=== PATIENT | female | born 1990 | race Caucasian/White ===

== ENCOUNTER 2017-01-07 11:37 | Emergency (ER) | payer OTHER ==
[2017-01-07 11:54] VITALS: BP 115/69
--- NOTE | 2017-01-07 13:53 | UC ---
Skin Complaint HPI - HPI Summary HPI Summary: SORE THROAT, SWOLLEN GLANDS AND COLD SYMPTOMS ON 12/24/16. COLD SYMPTOMS RESOLVED. 12/30/16 DEVELOPED AN ITCHY DIFFUSE RASH ON BODY. 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 Negative: Fever, Chills , Cough, Wheezing, Chest Pain, Hoarseness, Throat Tightening, Syncope, Drainage , Bruising, Tenderness, Red Streaks Related History: Possible Reaction to: Food, Possible Reaction to: Animal, Possible Reaction to: Insect, Possible Reaction to: Environmental Exposure - Allergy/Home Medications Allergies/Adverse Reactions: Allergies Allergy/AdvReac Type Severity Reaction Status Date / Time Nitrofurantoin Allergy Hives/Diff. Verified 01/07/17 11:55 [From Macrobid] Breathing/I tching Home Medications: Home Medications Levothyroxine TAB* [Synthroid 25 MCG TAB*] 25 01/07/17 [History] Montelukast Sodium TAB* [Singulair 10 MG TAB*] 10 01/07/17 [History] Norethindrone Acetate-Ethinyl [Tri-Legest Fe 1-20/1-30/1-35 mg-Mcg] 1 01/07/17 [ History] Review of Systems Constitutional: Negative Skin: Rash Eyes: Negative ENT: Negative Respiratory: Negative Cardiovascular: Negative Gastrointestinal: Negative Genitourinary: Negative Motor: Negative Neurovascular: Negative Musculoskeletal: Negative Neurological: Negative Psychological: Negative All Other Systems Reviewed And Are Negative: Yes PMH/Surg Hx/FS Hx/Imm Hx Previously Healthy: Yes Respiratory History Of: Reports: Asthma - exercise induced - Surgical History Surgical History: None - Family History Known Family History: Negative: Cardiac Disease - Social History Occupation: Employed Full-time Alcohol Use: None Substance Use Type: None Smoking Status (MU): Never Smoked Tobacco Physical Exam Triage Information Reviewed: Yes Appearance: Well-Appearing, No Pain Distress, Well-Nourished Vital Signs: Initial Vital Signs Temp 99.8 F 01/07/17 11:45 Pulse 90 01/07/17 11:45 Resp 16 01/07/17 11:45 BP 115/69 01/07/17 11:45 Pulse Ox 100 01/07/17 11:45 Vital Signs Reviewed: Yes Eye Exam: Normal ENT Exam: Normal ENT: Positive: Normal ENT inspection, Hearing grossly normal, Pharynx normal, TMs normal Dental Exam: Normal Neck exam: Normal Neck: Positive: Supple, Nontender Respiratory Exam: Normal Respiratory: Positive: Chest non-tender, Lungs clear, Normal breath sounds, No respiratory distress, No accessory muscle use Cardiovascular Exam: Normal Cardiovascular: Positive: RRR, No Murmur, Pulses Normal, Brisk Capillary Refill Abdominal Exam: Normal Musculoskeletal Exam: Normal Musculoskeletal: Positive: Strength Intact, ROM Intact Neurological Exam: Normal Psychological Exam: Normal Psychological: Positive: Normal Response To Family Skin: Positive: rashes - diffuse erythemaE that kimberly with pressure, small ( 1mm) papular elevations Course/Dx - Differential Diagnoses - Skin Complaint Differential Diagnoses: Allergic Reaction, Anaphylaxis, Contact Dermatitis, Drug Rash, Medication; Adverse Reaction, Sc[place], Systemic Illness, Urticaria , Viral Exanthem - Diagnoses Provider Diagnoses: VIRAL EXANTHEM Discharge - Discharge Plan Condition: Stable Disposition: HOME Prescriptions: diPHENhydraMINE PO* [Benadryl PO*] 50 mg PO BID #10 cap predniSONE TAB* [Deltasone TAB*] 10 mg PO DAILY #26 tab Patient Education Materials: Acute Rash (ED), Viral Exanthem (ED) Referrals: Rebecca Yao MD [Primary Care Provider] -
== END 2017-01-07 13:24 | disposition home or self-care (01) ==
LOC: UCEAST 11:37
DX: B09 Unspecified viral infection characterized by skin and mucous membrane lesions (principal); Z88.1 Allergy status to other antibiotic agents; J45.990 Exercise induced bronchospasm
CPT/HCPCS: 87651; 99212; G0463

== ENCOUNTER 2017-03-11 12:04 | Emergency (ER) | payer OTHER ==
[2017-03-11 13:44] VITALS: BP 136/77
--- NOTE | 2017-03-11 15:00 | UC ---
Complaint Female HPI - HPI Summary HPI Summary: burning on urination x 3 days. Hx prior UTI's. No vaginal symptoms. - History Of Current Complaint Chief Complaint: UCGU Stated Complaint: UTI TYPE SYMPTOMS Time Seen by Provider: 03/11/17 15:00 Hx Obtained From: Patient Hx Last Menstrual Period: [id number] ?: No Onset/Duration: Gradual Onset, Lasting Days, Still Present Timing: Constant Severity Initially: Moderate Severity Currently: Moderate Pain Intensity: 5 Pain Scale Used: 0-10 Numeric Radiates to: no Character: Burning Aggravating Factor(s): Urination Alleviating Factor(s): Nothing Associated Signs And Symptoms: Negative: Fever, Back Pain, Vaginal Bleeding/ Discharge, Vaginal Discharge, Nausea, Vomiting(# Of Episodes =) - Allergies/Home Medications Allergies/Adverse Reactions: Allergies Allergy/AdvReac Type Severity Reaction Status Date / Time Nitrofurantoin Allergy Hives/Diff. Verified 01/07/17 11:55 [From Macrobid] Breathing/I tching Home Medications: Home Medications Cetirizine* [ZyrTEC 10 MG TAB*] 10 mg PO DAILY 03/11/17 [History Confirmed 03/11] Cranberry (Vaccinium Macrocarp [Cranberry] 500 mg PO 03/11/17 [History] PMH/Surg Hx/FS Hx/Imm Hx Previously Healthy: Yes Respiratory History Of: Reports: Asthma - exercise induced - Surgical History Surgical History: None - Family History Known Family History: Negative: Cardiac Disease - Social History Alcohol Use: None Substance Use Type: None Smoking Status (MU): Never Smoked Tobacco Review of Systems Constitutional: Negative Skin: Negative Eyes: Negative ENT: Negative Respiratory: Negative Cardiovascular: Negative Gastrointestinal: Negative Genitourinary: Dysuria, Urgency, Other - urinating small amounts Motor: Negative Neurovascular: Negative Musculoskeletal: Negative Neurological: Negative Psychological: Negative All Other Systems Reviewed And Are Negative: Yes Physical Exam Triage Information Reviewed: Yes Appearance: Well-Appearing, No Pain Distress, Well-Nourished Vital Signs: Initial Vital Signs Temp 98.8 F 03/11/17 13:40 Pulse 89 03/11/17 13:40 Resp 18 03/11/17 13:40 BP 136/77 03/11/17 13:40 Pulse Ox 98 03/11/17 13:40 Vital Signs Reviewed: Yes Eyes: Positive: Conjunctiva Clear ENT: Positive: Normal ENT inspection, Hearing grossly normal. Negative: Muffled /hoarse voice Neck: Positive: Supple Respiratory: Positive: No respiratory distress Cardiovascular: Positive: RRR, Pulses Normal, Brisk Capillary Refill Abdomen Description: Positive: Nontender, No Organomegaly, Soft. Negative: CVA Tenderness (R), CVA Tenderness (L), Distended, Guarding, Hepatomegaly, McBurney' s Point Tenderness, Peritoneal Signs, Splenomegaly Bowel Sounds: Positive: Present Musculoskeletal: Positive: Strength Intact, ROM Intact Neurological: Positive: Alert, Muscle Tone Normal Psychological Exam: Normal Skin Exam: Normal Complaint Female Dx - Course Course Of Treatment: UA is neg for signs of infection, will send culture. Will treat for possible ureaplasma or mycoplasma hominis and encourage definite follow up - Differential Dx/Diagnosis Differential Diagnosis/HQI/PQRI: Ovarian Cyst, Pelvic Inflammatory Disease, Sexually Transmitted Disease, Urinary Tract Infection Provider Diagnoses: dysuria Discharge - Discharge Plan Condition: Stable Disposition: HOME Prescriptions: DOXYcycline CAP(*) [DOXYcycline 100MG CAP(*)] 100 mg PO BID #14 cap Patient Education Materials: Urinary Tract Infection in Women (ED) Referrals: Rebecca Yao MD [Primary Care Provider] - Additional Instructions: As we discussed this may be an infection due to mycoplasma hominis, or ureaplasma. We have sent off the urine culture and the testing for these organisms and we have started empiric therapy. We may call you to change your therapy based on these results. Return to urgent care if you have any new or worsening symptoms.
--- NOTE | 2017-03-13 09:58 | UC ---
Progress - Progress Note Progress Note: urine culture, no growth. jurgen euceda md.
[2017-03-15 14:50] LABS: Ureaplasma Source URINE; Ureaplasma parvum PCR Positive; Ureaplasma urealyticum PCR Negative
[2017-03-15 14:53] LABS: Mycoplasma hominis Result Negative; Mycoplasma hominis Source URINE
== END 2017-03-11 15:25 | disposition home or self-care (01) ==
LOC: UCEAST 12:04
DX: R30.0 Dysuria (principal); Z87.440 Personal history of urinary (tract) infections; Z88.1 Allergy status to other antibiotic agents; J45.990 Exercise induced bronchospasm
CPT/HCPCS: 81003; 87086; 87491; 87591; 87798; 99212; G0463

== ENCOUNTER 2018-03-28 08:28 | Emergency (ER) | payer OTHER ==
[2018-03-28 08:40] VITALS: BP 122/80
--- NOTE | 2018-03-28 16:27 | UC ---
Avelino Light Angela, scribed for Jose Cochran MD on 03/28/18 at 0846 . Eye Complaint HPI - HPI Summary HPI Summary: This pt is a 27 y/o female presenting to [facility] c/o bilateral eye redness since this morning. Pt states she woke up this morning with her eyelids closed and some dry yellow secretions. She denies eye trauma. Pt denies eye itchiness. Denies URI symptoms, including sore throat, cough, runny nose, sinus pressure. She reports no allergy symptoms. Denies any PMHx. - History of Current Complaint Chief Complaint: UCEye Stated Complaint: EYE COMPLAINT Time Seen by Provider: 03/28/18 08:44 Hx Obtained From: Patient Hx Last Menstrual Period: 03/07/18 Onset/Duration: Lasting Hours, Still Present Timing: Constant Severity Currently: None Pain Intensity: 0 Pain Scale Used: 0-10 Numeric Location of Injury: Other - no injury Aggravating Factor(s): Nothing Alleviating Factor(s): Nothing Associated Signs And Symptoms: Positive: Drainage (Clear) - yellow secretions. Negative: Vision Impairment Bilateral, Vision Impairment Right, Vision Impairment Left, Fever - Allergies/Home Medications Allergies/Adverse Reactions: Allergies Allergy/AdvReac Type Severity Reaction Status Date / Time nitrofurantoin Allergy anaph Verified 03/28/18 08:41 [From Macrobid] PMH/Surg Hx/FS Hx/Imm Hx Other Endocrine History: DENIES: diabetes Other Cardiovascular History: DENIES: HTN Respiratory History: Asthma - exercise induced - Surgical History Surgical History: None - Family History Known Family History: Negative: Cardiac Disease - Social History Alcohol Use: None Substance Use Type: None Smoking Status (MU): Never Smoked Tobacco Review of Systems Constitutional: Negative Skin: Negative Eyes: Drainage - yellow, Eye Redness - in bilateral eyes ENT: Negative Respiratory: Negative Cardiovascular: Negative Gastrointestinal: Negative Genitourinary: Negative Motor: Negative Neurovascular: Negative Musculoskeletal: Negative Neurological: Negative Psychological: Negative All Other Systems Reviewed And Are Negative: Yes Physical Exam - Summary Physical Exam Summary: VITAL SIGNS: Reviewed. GENERAL: Patient is a well-developed and nourished female who is lying comfortable in the stretcher. Patient is not in any acute respiratory distress. HEAD AND FACE: Normocephalic EYES: PERRLA, EOMI x 2. Conjunctival injection and dry crust in bilateral eyes. EARS: Hearing grossly intact. MOUTH: Oropharynx within normal limits. NECK: Supple, trachea is midline, no adenopathy, no JVD, no carotid bruit. CHEST: Symmetric, no tenderness at palpation LUNGS: Clear to auscultation bilaterally. No wheezing or crackles. CVS: Regular rate and rhythm, S1 and S2 present, no murmurs or gallops appreciated. ABDOMEN: Soft, non-tender. Bowel sounds are normal. No abdominal abnormal pulsations. EXTREMITIES: Full ROM in all major joints, no edema, no cyanosis or clubbing. NEURO: Alert and oriented x 3. No acute neurological deficits. Speech is normal and follows commands. SKIN: Dry and warm Triage Information Reviewed: Yes Vital Signs: Initial Vital Signs Temp 96 F 03/28/18 08:38 Pulse 79 03/28/18 08:38 Resp 16 03/28/18 08:38 BP 122/80 03/28/18 08:38 Pulse Ox 100 03/28/18 08:38 Vital Signs Reviewed: Yes Eye Complaint Course/Dx - Course Course Of Treatment: This pt is a 27 y/o female presenting to [facility] c/o bilateral eye redness since this morning. Pt states she woke up this morning with her eyelids closed and some dry yellow secretions. She denies eye trauma. Pt denies eye itchiness. Denies URI symptoms, including sore throat, cough, runny nose, sinus pressure. She reports no allergy symptoms. Denies any PMHx. The pt has bilateral conjunctivitis, for which she will be given a prescription for Ciprofloxacin ophthalmic. She will be discharged home with follow up from her PCP. Pt was instructed to return to the urgent care or go to ER immediately if any of the symptoms return or worsens. Plan of care was discussed with the patient and pt understands and agrees. All questions were answered to patient satisfaction. There were no further complaints or concerns. Pt is hemodynamically stable, alert and oriented x3. - Differential Dx/Diagnosis Provider Diagnoses: Bilateral conjunctivitis Discharge - Sign-Out/Discharge Documenting (check all that apply): Discharge/Admit/Transfer - Discharge - Discharge Plan Condition: Stable Disposition: HOME Prescriptions: Ciprofloxacin 0.3% OPTH.RENE* [Cipro 0.3% Opth*] 2 drop BOTH EYES Q4H #1 btl Patient Education Materials: Conjunctivitis (ED) Referrals: Rebecca Yao MD [Primary Care Provider] - Additional Instructions: RETURN TO URGENT CARE OR THE ED FOR ANY WORSENING OR NEW SYMPTOMS. The documentation as recorded by the Avelino singletary Angela accurately reflects the service I personally performed and the decisions made by Dimas perez Walter, MD.
== END 2018-03-28 09:03 | disposition home or self-care (01) ==
LOC: UCEAST 08:28
DX: H10.33 Unspecified acute conjunctivitis, bilateral (principal); J45.990 Exercise induced bronchospasm; Z88.1 Allergy status to other antibiotic agents
CPT/HCPCS: 99212; G0463

== ENCOUNTER 2018-04-10 13:41 | Emergency (ER) | payer OTHER ==
[2018-04-10 14:22] VITALS: BP 129/67
--- NOTE | 2018-04-10 14:39 | UC ---
Eye Complaint HPI - HPI Summary HPI Summary: She presents today with continued bilateral eye symptoms. Was seen here on 03/28 and started on ciprofloxacin eye drops. Symptoms responded to it but partially and she stopped using it yesterday with return of symptoms which she reports greenish discharge with stickiness in eye, not painful . There is increased lacrimation, and redness. Some blurry vision yesterday but feels better today . She also reports seasonal allergies to trees/ grass- mainly nov to january and she sees [facility]. She is on a daily medication but does not remember name . Has used zyrtec in past which she has at home but has not been using it . She had similar symptoms with runny nose and increased lacrimation but never to the point of greenish discharge. Denies any trauma or a possible foreign body . She denies any sick contact , or any other symptom - History of Current Complaint Chief Complaint: UCEye Stated Complaint: EYE IRRITATION Time Seen by Provider: 04/10/18 14:35 Hx Obtained From: Patient Hx Last Menstrual Period: 2 WEEKS AGO Onset/Duration: Sudden Onset, Lasting Weeks Timing: Constant Severity Initially: Moderate Severity Currently: Mild Pain Intensity: 1 Pain Scale Used: 0-10 Numeric Location of Injury: Conjunctiva Aggravating Factor(s): Nothing Alleviating Factor(s): Eye Drops Associated Signs And Symptoms: Positive: Drainage (Purulent), Vision Impairment Bilateral. Negative: Photophobia, Fever, Swelling Related History: Similar Episode - in past but worst this time., Trauma - Risk Factors Penetrating Injury Risk Factor: Negative Globe Rupture Risk Factors: Negative Acute Glaucoma Risk Factors: Negative Optic Artery Occlusion Risk Factors: Negative - Allergies/Home Medications Allergies/Adverse Reactions: Allergies Allergy/AdvReac Type Severity Reaction Status Date / Time nitrofurantoin Allergy anaph Verified 04/10/18 14:15 [From Macrobid] Home Medications: Home Medications Ciprofloxacin 0.3% OPTH.RENE* [Cipro 0.3% Opth*] 2 drop BOTH EYES Q4H 04/10/18 [ History Confirmed 04/10/18] PMH/Surg Hx/FS Hx/Imm Hx Previously Healthy: Yes Endocrine History: Hypothyroidism Other Cardiovascular History: negative Respiratory History: Asthma - exercise induced Other GI/ History: negative Other Neurological History: negative Other Psychological History: negative Other Cancer History: negative - Surgical History Surgical History: None - Family History Known Family History: Negative: Cardiac Disease - Social History Alcohol Use: None Substance Use Type: None Smoking Status (MU): Never Smoked Tobacco Review of Systems Constitutional: Negative Skin: Negative Eyes: Blurred Vision, Drainage - purulent, Eye Redness ENT: Negative Respiratory: Negative Cardiovascular: Negative Gastrointestinal: Negative Genitourinary: Negative Motor: Negative Neurovascular: Negative Musculoskeletal: Negative Neurological: Negative Psychological: Negative Is Patient Immunocompromised?: No All Other Systems Reviewed And Are Negative: Yes Physical Exam Triage Information Reviewed: Yes Appearance: Well-Appearing, No Pain Distress, Well-Nourished Vital Signs: Initial Vital Signs Temp 99.1 F 04/10/18 14:18 Pulse 77 04/10/18 14:18 Resp 16 04/10/18 14:18 BP 129/67 04/10/18 14:18 Pulse Ox 98 04/10/18 14:18 Vital Signs Reviewed: Yes Eyes: Positive: Conjunctiva Inflamed - Erythema noted, Discharge - mild clear discharge, no purulent discharge noted. ENT: Positive: Hearing grossly normal, Pharynx normal, TMs normal. Negative: Nasal congestion, Nasal drainage, Muffled voice, Hoarse voice Neck: Positive: Supple, No Lymphadenopathy Respiratory Exam: Other Respiratory: Positive: Lungs clear, Normal breath sounds. Negative: Crackles, Rhonchi, Stridor Cardiovascular Exam: Normal Cardiovascular: Positive: RRR, No Murmur Neurological: Positive: Alert Psychological Exam: Normal Skin Exam: Normal Skin: Negative: rashes Eye Complaint Course/Dx - Course Course Of Treatment: She has a diagnosis of bacterial conjunctivitis and was seen for follow up due to continued symptoms despite the ciprofloxacin eye drops x 2 weeks. She has significant hisory of seasonal allegies and had runny eyes in past but this time it was worst . We discussed that there might be a component of allergic conjunctivitis causing her continued symptpms. We discussed that she will start different antibiotic, start taking zyrtec and follow up in 1 week with ophthalmology if still having symptoms. We also discussed that she can try ophtalmic antiallergic medication like patanol but she deferred to use oral zyrtec. She expressed understanding . . - Differential Dx/Diagnosis Differential Diagnosis/HQI/PQRI: Conjunctivitis, Foreign Body, Keratitis Provider Diagnoses: Conjucntovitis , possible bacterial but allergic conjunctivitis cannot be ruled out . Discharge - Sign-Out/Discharge Documenting (check all that apply): Discharge/Admit/Transfer - Discharge Plan Condition: Stable Disposition: HOME Prescriptions: Polymyx/Trimethoprim OPTH* [Polytrim OPHTH*] 1 drop BOTH EYES Q3H 7 Days #1 btl Patient Education Materials: Conjunctivitis (ED) Referrals: Rebecca Yao MD [Primary Care Provider] - Trent Elizabeth MD [Medical Doctor] - 1 Week Additional Instructions: You have persistent symptoms despite using the ciprofloxacin eye drops. Possible recurring infection or there is allergic conjunctivitis as you have history of allergies. Start using a different antibiotic - prescribed today. Start using zyrtec daily Follow up with ophthalmology in 1 week, return sooner if no better or symptoms get worse. - Billing Disposition and Condition Condition: STABLE Disposition: HOME
== END 2018-04-10 15:10 | disposition home or self-care (01) ==
LOC: UCEAST 13:41
DX: H10.33 Unspecified acute conjunctivitis, bilateral (principal); E03.9 Hypothyroidism, unspecified; J45.990 Exercise induced bronchospasm; Z88.1 Allergy status to other antibiotic agents
CPT/HCPCS: 99212; G0463

== ENCOUNTER 2020-03-09 16:37 | Emergency (ER) | payer OTHER ==
--- OUTSIDE RECORDS SUMMARY | 2020-03-09 16:43 | XMS REPORT | Continuity of Care Document ---
:1990 External Reference #:[id number] Author Name Allergy Injection (transmitted by agent of provider Jaz Siddiqui) Address [address] [place] [address] Care Team Providers Name Role Phone Rebecca Yao M.D. - Family Care Team Information Mold Filler Medicine Problems Active Problems Provider Date Body mass index 25-29 - overweight Alfonso Cordova M.D. Onset: 01/13/2016 Immunization Alfonso Cordova M.D. Onset: 01/13/2016 Mild persistent asthma Alfonso Cordova M.D. Onset: 01/13/2016 Allergic rhinitis due to pollen Alfonso Cordova M.D. Onset: 02/24/2016 Body mass index 25-29 - overweight Alfonso Cordova M.D. Onset: 02/24/2016 Mild intermittent asthma Alfonso Cordova M.D. Onset: 08/30/2017 Urticaria Alfonso Cordova M.D. Onset: 03/05/2017 Allergic rhinitis Ovidio Flores M.D. Onset: 01/07/2017 Idiopathic urticaria Ovidio Flores M.D. Onset: 01/07/2017 Symptom of skin and integumentary tissue Ovidio Flores M.D. Onset: Body mass index 25-29 - overweight Ovidio Flores M.D. Onset: 01/07/2017 Social History Type Date Description Comments Sex Unknown Tobacco Use Start: Unknown Never Smoked Cigarettes Tobacco Use Start: Unknown Never Smoked Cigars Tobacco Use Start: Unknown Never Smoked A Pipe Tobacco Use Start: Unknown Never Used Smokeless Tobacco ETOH Use Never used alcohol Tobacco Use Start: Unknown Patient has never smoked Recreational Drug Use Never Used Drugs Allergies, Adverse Reactions, Alerts Active Allergies Reaction Severity Comments Date Macrobid Throat swelling, difficulty Severe 01/03/2016 breathing/talking. Medications Active Medications SIG Qnty Indications Ordering Date Provider Gayle Allergy 1 every day 30tabs Debora Root, 01/18/2017 10mg M.D. Tablets Synthroid one tablet daily Unknown 50mcg Tablets Tri-Linyah one tablet once Unknown daily 0.18/0.215/0.25 mg-35 mcg Tablets Cran-Max one tablet daily Unknown 500mg Capsules Proair HFA two inhalations 8.500gm Alfonso Cordova, every 4 hours as M.D. 108(90Base) mcg/Act needed for cough, Aerosol wheezing or chest tightness Doxycycline Hyclate take 1 capsule by Unknown mouth once daily 50mg Capsules With A Full Glass Of Water DO ... (Refer To Prescription Notes). Medications Administered in Office Medication SIG Qnty Indications Ordering Provider Date Injection Allergy Injection 01/22/2020 Injection Injection Allergy Injection 01/08/2020 Injection Injection Allergy Injection 12/25/2019 Injection Injection Allergy Injection 10/30/2019 Injection Injection Allergy Injection 09/25/2019 Injection Injection Allergy Injection 09/11/2019 Injection Injection Allergy Injection 08/21/2019 Injection Injection Allergy Injection 08/07/2019 Injection Injection Allergy Injection 07/24/2019 Injection Injection Allergy Injection 07/03/2019 Injection Injection Allergy Injection 06/19/2019 Injection Injection Allergy Injection 06/05/2019 Injection Injection Allergy Injection 05/22/2019 Injection Injection Allergy Injection 05/08/2019 Injection Injection Allergy Injection 04/24/2019 Injection Injection Allergy Injection 03/27/2019 Injection Injection Allergy Injection 03/06/2019 Injection Injection Allergy Injection 02/20/2019 Injection Injection Allergy Injection 02/06/2019 Injection Injection Allergy Injection 01/23/2019 Injection Injection Allergy Injection 01/09/2019 Injection Injection Allergy Injection 12/26/2018 Injection Injection Allergy Injection 12/19/2018 Injection Injection Allergy Injection 11/28/2018 Injection Injection Allergy Injection 11/21/2018 Injection Injection Allergy Injection 11/11/2018 Injection Injection Allergy Injection 09/26/2018 Injection Injection Allergy Injection 09/12/2018 Injection Injection Allergy Injection 08/29/2018 Injection Injection Allergy Injection 08/15/2018 Injection Injection Alfonso Cordova M.D. 08/01/2018 Injection Injection Allergy Injection 08/01/2018 Injection Injection Alfonso Cordova M.D. 07/04/2018 Injection Injection Allergy Injection 07/04/2018 Injection Injection Allergy Injection 06/06/2018 Injection Injection Allergy Injection 05/23/2018 Injection Injection Allergy Injection 05/09/2018 Injection Injection Allergy Injection 04/25/2018 Injection Injection Alfonso Cordova M.D. 04/04/2018 Injection Injection Allergy Injection 04/04/2018 Injection Injection Alfonso Cordova M.D. 03/21/2018 Injection Injection Allergy Injection 03/21/2018 Injection Injection Alfonso Cordova M.D. 03/07/2018 Injection Injection Allergy Injection 03/07/2018 Injection Injection Allergy Injection 02/21/2018 Injection Injection Allergy Injection 02/03/2018 Injection Injection Allergy Injection 01/17/2018 Injection Injection Alfonso Cordova M.D. 01/03/2018 Injection Injection Allergy Injection 01/03/2018 Injection Injection Allergy Injection 12/20/2017 Injection Injection Allergy Injection 12/06/2017 Injection Injection Allergy Injection 11/24/2017 Injection Injection Allergy Injection 11/11/2017 Injection Injection Allergy Injection 10/25/2017 Injection Injection Allergy Injection 10/11/2017 Injection Injection Alfonso Cordova M.D. 09/27/2017 Injection Injection Allergy Injection 09/27/2017 Injection Injection Allergy Injection 09/13/2017 Injection Injection Allergy Injection 08/30/2017 Injection Injection Allergy Injection 08/16/2017 Injection Injection Allergy Injection 07/26/2017 Injection Injection Allergy Injection 07/05/2017 Injection Injection Allergy Injection 06/21/2017 Injection Injection Allergy Injection 06/07/2017 Injection Injection Allergy Injection 05/24/2017 Injection Injection Alfonso Cordova M.D. 05/03/2017 Injection Injection Allergy Injection 05/03/2017 Injection Injection Allergy Injection 04/19/2017 Injection Injection Allergy Injection 04/05/2017 Injection Injection Allergy Injection 03/22/2017 Injection Injection Alfonso Cordova M.D. 03/15/2017 Injection Injection Allergy Injection 03/15/2017 Injection Injection Allergy Injection 03/08/2017 Injection Injection Allergy Injection 03/03/2017 Injection Injection Allergy Injection 02/22/2017 Injection Injection Allergy Injection 02/15/2017 Injection Injection Allergy Injection 02/08/2017 Injection Injection Allergy Injection 02/01/2017 Injection Celestone/Cortisone Ovidio Flores M.D. 01/07/2017 [id number] 1 cc Injection Injection Allergy Injection 12/24/2016 Injection Injection Allergy Injection 12/11/2016 Injection Injection Allergy Injection 12/03/2016 Injection Injection Allergy Injection 11/19/2016 Injection Injection Allergy Injection 11/04/2016 Injection Injection Allergy Injection 10/26/2016 Injection Injection Allergy Injection 10/19/2016 Injection Injection Allergy Injection 10/12/2016 Injection Injection Allergy Injection 10/05/2016 Injection Injection Allergy Injection 09/28/2016 Injection Injection Allergy Injection 09/23/2016 Injection Injection Allergy Injection 09/16/2016 Injection Injection Allergy Injection 09/07/2016 Injection Injection Allergy Injection 08/31/2016 Injection Injection Allergy Injection 08/24/2016 Injection Injection Allergy Injection 08/17/2016 Injection Injection Allergy Injection 08/10/2016 Injection Injection Allergy Injection 08/03/2016 Injection Injection Allergy Injection 07/29/2016 Injection Injection Allergy Injection 07/23/2016 Injection Injection Allergy Injection 07/13/2016 Injection Injection Allergy Injection 07/06/2016 Injection Injection Allergy Injection 06/29/2016 Injection Injection Allergy Injection 06/22/2016 Injection Injection Allergy Injection 06/17/2016 Injection Injection Allergy Injection 06/08/2016 Injection Injection Allergy Injection 06/03/2016 Injection Injection Allergy Injection 05/25/2016 Injection Injection Allergy Injection 05/20/2016 Injection Injection Allergy Injection 05/11/2016 Injection Injection Allergy Injection 05/04/2016 Injection Injection Allergy Injection 04/27/2016 Injection Injection Allergy Injection 04/20/2016 Injection Injection Allergy Injection 04/15/2016 Injection Injection Allergy Injection 04/06/2016 Injection Injection Allergy Injection 03/30/2016 Injection Injection Allergy Injection 03/23/2016 Injection Injection Allergy Injection 03/16/2016 Injection Injection Allergy Injection 03/09/2016 Injection Injection Allergy Injection 03/02/2016 Injection Injection Allergy Injection 02/24/2016 Injection Injection Allergy Injection 02/17/2016 Injection Injection Allergy Injection 02/10/2016 Injection Injection Allergy Injection 02/03/2016 Injection Injection Allergy Injection 01/27/2016 Injection Immunizations CPT Code Status Date Vaccine Lot # [id number] Given Unknown Influenza Vaccine 3 Years Old + Vital Signs Date Vital Result Comment 08/14/2019 4:38pm Height 65 inches 5'5" Weight 176.00 lb Weight 79.834 kg Respiratory Rate 16 /min Heart Rate 86 /min O2 % BldC Oximetry 96 % BP Systolic 110 mmHg BP Diastolic 70 mmHg Asthma Control Test 25 Fractional Exhaled Nitric Oxide 10 BMI (Body Mass Index) 29.3 kg/m2 02/06/2019 4:42pm Height 65 inches 5'5" Weight 172.00 lb Weight 78.019 kg Respiratory Rate 18 /min Heart Rate 85 /min O2 % BldC Oximetry 98 % BP Systolic 113 mmHg BP Diastolic 70 mmHg Asthma Control Test 23 BMI (Body Mass Index) 28.6 kg/m2 Results Description No Information Available Procedures Date Code Description Status 01/22/2020 13271 Injection Completed 01/08/2020 67095 Injection Completed 12/25/2019 66562 Injection Completed 10/30/2019 65618 Injection Completed 09/25/2019 61951 Injection Completed 09/11/2019 04138 Injection Completed 08/21/2019 83635 Injection Completed 08/14/2019 99352 Nitric Oxide Gas Determination Completed 08/14/2019 64578 Pre PFT Completed 08/07/2019 58041 Injection Completed Medical Devices Description No Information Available Encounters Type Date Location Provider Dx Diagnosis Office Visit 08/14/2019 4:40p Liya Cordova M.D. J30.1 Allergic rhinitis due to pollen J45.20 Mild intermittent asthma, uncomplicated Assessments Date Code Description Provider 01/22/2020 J30.1 Allergic rhinitis due to pollen Alfonso Cordova M.D. 01/22/2020 J30.1 Allergic rhinitis due to pollen Allergy Injection 01/22/2020 J30.2 Other seasonal allergic rhinitis Alfonso Cordova M.D. 01/22/2020 J30.2 Other seasonal allergic rhinitis Allergy Injection 01/22/2020 J30.81 Allergic rhinitis due to animal (cat) (dog) hair Alfonso Cordova M.D. and dander 01/22/2020 J30.81 Allergic rhinitis due to animal (cat) (dog) hair Allergy Injection and dander 01/22/2020 J30.89 Other allergic rhinitis Alfonso Cordova M.D. 01/22/2020 J30.89 Other allergic rhinitis Allergy Injection 01/08/2020 J30.1 Allergic rhinitis due to pollen Alfonso Cordova M.D. 01/08/2020 J30.1 Allergic rhinitis due to pollen Allergy Injection 01/08/2020 J30.2 Other seasonal allergic rhinitis Alfonso Cordova M.D. 01/08/2020 J30.2 Other seasonal allergic rhinitis Allergy Injection 01/08/2020 J30.81 Allergic rhinitis due to animal (cat) (dog) hair Alfonso Cordova M.D. and dander 01/08/2020 J30.81 Allergic rhinitis due to animal (cat) (dog) hair Allergy Injection and dander 01/08/2020 J30.89 Other allergic rhinitis Alfonso Cordova M.D. 01/08/2020 J30.89 Other allergic rhinitis Allergy Injection 12/25/2019 J30.1 Allergic rhinitis due to pollen Alfonso Cordova M.D. 12/25/2019 J30.1 Allergic rhinitis due to pollen Allergy Injection 12/25/2019 J30.2 Other seasonal allergic rhinitis Alfonso Cordova M.D. 12/25/2019 J30.2 Other seasonal allergic rhinitis Allergy Injection 12/25/2019 J30.81 Allergic rhinitis due to animal (cat) (dog) hair Alfonso Cordova M.D. and dander 12/25/2019 J30.81 Allergic rhinitis due to animal (cat) (dog) hair Allergy Injection and dander 12/25/2019 J30.89 Other allergic rhinitis Alfonso Cordova M.D. 12/25/2019 J30.89 Other allergic rhinitis Allergy Injection 10/30/2019 J30.1 Allergic rhinitis due to pollen Alfonso Cordova M.D. 10/30/2019 J30.1 Allergic rhinitis due to pollen Allergy Injection 10/30/2019 J30.2 Other seasonal allergic rhinitis Alfonso Cordova M.D. 10/30/2019 J30.2 Other seasonal allergic rhinitis Allergy Injection 10/30/2019 J30.81 Allergic rhinitis due to animal (cat) (dog) hair Alfonso Cordova M.D. and dander 10/30/2019 J30.81 Allergic rhinitis due to animal (cat) (dog) hair Allergy Injection and dander 10/30/2019 J30.89 Other allergic rhinitis Alfonso Cordova M.D. 10/30/2019 J30.89 Other allergic rhinitis Allergy Injection 09/25/2019 J30.1 Allergic rhinitis due to pollen Alfonso Cordova M.D. 09/25/2019 J30.1 Allergic rhinitis due to pollen Allergy Injection 09/25/2019 J30.2 Other seasonal allergic rhinitis Alfonso Cordova M.D. 09/25/2019 J30.2 Other seasonal allergic rhinitis Allergy Injection 09/25/2019 J30.81 Allergic rhinitis due to animal (cat) (dog) hair Alfonso Cordova M.D. and dander 09/25/2019 J30.81 Allergic rhinitis due to animal (cat) (dog) hair Allergy Injection and dander 09/25/2019 J30.89 Other allergic rhinitis Alfonso Cordova M.D. 09/25/2019 J30.89 Other allergic rhinitis Allergy Injection 09/11/2019 J30.1 Allergic rhinitis due to pollen Alfonso Cordova M.D. 09/11/2019 J30.1 Allergic rhinitis due to pollen Allergy Injection 09/11/2019 J30.2 Other seasonal allergic rhinitis Alfonso Cordova M.D. 09/11/2019 J30.2 Other seasonal allergic rhinitis Allergy Injection 09/11/2019 J30.81 Allergic rhinitis due to animal (cat) (dog) hair Alfonso Cordova M.D. and dander 09/11/2019 J30.81 Allergic rhinitis due to animal (cat) (dog) hair Allergy Injection and dander 09/11/2019 J30.89 Other allergic rhinitis Alfonso Cordova M.D. 09/11/2019 J30.89 Other allergic rhinitis Allergy Injection 08/21/2019 J30.1 Allergic rhinitis due to pollen Alfonso Cordova M.D. 08/21/2019 J30.1 Allergic rhinitis due to pollen Allergy Injection 08/21/2019 J30.2 Other seasonal allergic rhinitis Alfonso Cordova M.D. 08/21/2019 J30.2 Other seasonal allergic rhinitis Allergy Injection 08/21/2019 J30.81 Allergic rhinitis due to animal (cat) (dog) hair Alfonso Cordova M.D. and dander 08/21/2019 J30.81 Allergic rhinitis due to animal (cat) (dog) hair Allergy Injection and dander 08/21/2019 J30.89 Other allergic rhinitis Alfonso Cordova M.D. 08/21/2019 J30.89 Other allergic rhinitis Allergy Injection 08/14/2019 J30.1 Allergic rhinitis due to pollen Alfonso Cordova M.D. 08/14/2019 J45.20 Mild intermittent asthma, uncomplicated Alfonso Cordova M.D. 08/07/2019 J30.1 Allergic rhinitis due to pollen Alfonso Cordova M.D. 08/07/2019 J30.1 Allergic rhinitis due to pollen Allergy Injection 08/07/2019 J30.2 Other seasonal allergic rhinitis Alfonso Cordova M.D. 08/07/2019 J30.2 Other seasonal allergic rhinitis Allergy Injection 08/07/2019 J30.81 Allergic rhinitis due to animal (cat) (dog) hair Alfonso Cordova M.D. and dander 08/07/2019 J30.81 Allergic rhinitis due to animal (cat) (dog) hair Allergy Injection and dander 08/07/2019 J30.89 Other allergic rhinitis Alfonso Cordova M.D. 08/07/2019 J30.89 Other allergic rhinitis Allergy Injection Plan of Treatment Future Appointment(s):08/12/2020 4:40 pm - Alfonso Cordova M.D. at [place] Functional Status Description No Information Available Mental Status Description No Information Available Referrals Description No Information Available
--- OUTSIDE RECORDS SUMMARY | 2020-03-09 16:43 | XMS REPORT | Continuity of Care Document ---
:1990 External Reference #:[id number] Author Name Rebecca Yao M.D. Address [address] [place] [address] Problems Description No Information Available Social History Type Date Description Comments Sex Unknown Tobacco Use Start: Unknown Patient has never smoked Allergies, Adverse Reactions, Alerts Active Allergies Reaction Severity Comments Date Nitrofurantoin throat swelling, difficulty breathing- 05/22/2012 resolved on own Inactive Allergies NKDA 05/14/2003 Medications Active Medications SIG Qnty Indications Ordering Date Provider Clindamycin Phosphate one applicator into 40gm Rebecca Baer 01/09/2020 vaginal canal Blegen M.DParvin 2% Cream before bed for 7 days Tri-Sprintec Take 1 Tablet By 28tabs Rebecca Baer 10/02/2019 Mouth Once Daily Blegen, M.D. 0.18/0.215/0.25 mg-35 mcg Tablets Vitamin B-12 1 by mouth every Rebecca PParvin 08/29/2019 1000mcg day- sublingual- Blegen M.D. Tablets for vitamin b12 deficiency Levothyroxine Sodium Take 1 Tablet By 90tabs Rebecca P. 09/04/2018 Mouth Every Morning Blegen, M.D. 75mcg Tablets On An Empty Stomach Hydrocortisone Apply Twice Per Day 30units Rebecca Baer 06/24/2018 Valerate For Up To 2 Weeks Blegen, M.D. 0.2% Cream as Needed For Eczema Clindamycin apply qd to bid for 50gm L70.9 Rebecca PParvin 07/09/2016 Phos-Benzoyl Perox acne as directed Najma MParvinDParvin 1-5% Gel Valtrex 2 by mouth twice a 8tabs Rebecca Baer 10/02/2013 1gm Tablets day x 1 day as Blegen, M.D. needed cold sores Ventolin HFA 2 puffs every 4-6 1units Rebecca Baer 07/25/2013 hours as needed Blegen, M.D. 108(90Base) mcg/Act wheeze Aerosol Doxycycline Hyclate take 1 capsule by Unknown mouth once daily 50mg Capsules With A Full Glass Of Water DO ... (Refer To Prescription Notes). Nicomide TK 1 T PO hs Unknown 750-27-2-0.5mg Tablets History Medications Triamcinolone apply two times 15gm L29.9 Rebecca Baer 01/08/2020 - Acetonide daily for up to 2 Blegen, M.D. 02/27/2020 0.1% Cream weeks for itching on heels- wait to fill until patient calls Fluconazole 1 tablet by mouth 2tabs Rebecca Baer 09/03/2019 - 150mg x1 now for yeast Blegen, M.D. 01/08/2020 Tablets infection,may repeat in 1 week if needed Clindamycin Phosphate one applicator 40gm N76.0 Rebecca Baer 08/30/2019 - into vaginal canal Blegen, M.D. 01/08/2020 2% Cream before bed for 7 days Medications Administered in Office Medication SIG Qnty Indications Ordering Provider Date Vitamin B-12 Injection-To [facility] 09/29/2018 1000mcg Injection Vitamin B-12 Injection-To [facility] 09/22/2018 1000mcg Injection Vitamin B-12 Injection-To [facility] 09/15/2018 1000mcg Injection Vitamin B-12 Injection-To [facility] 09/08/2018 1000mcg Injection Immunizations CPT Code Status Date Vaccine Lot # [id number] Given 10/23/2019 Influenza Virus Vaccine, Quadrivalent, 3 Yr > [id number] Quad, Preserv Free 31806 Given 08/30/2019 Hepatitis A, Adult [id number] 69407 Given 08/29/2018 Influenza Virus Vaccine, Quadrivalent, 3 Yr > [id number] Quad, Preserv Free 17943 Given 08/03/2017 Influenza Virus Vaccine, Quadrivalent, 3 Yr > [id number] Quad, Preserv Free 11092 Given 07/09/2016 Tdap (Adacel) [id number] 99772 Given 07/25/2013 Influenza Vaccine-Preservative Free 3 Yrs And [id number] Above 45959 Given 04/24/2009 Menactra (meningococcal conjugate vaccine) [id number] 87198 Given 07/11/2008 HPV Vaccine, Gardasil [id number] 53110 Given 03/13/2008 HPV Vaccine, Gardasil [id number] 95741 Given 01/11/2008 HPV Vaccine, Gardasil [id number] 52345 Given 01/14/2006 Tdap (Adacel) [id number] 65412 Given 08/24/1998 Influenza Virus Vaccine 57299 Given 06/27/1996 Opv (Poliovirus,Oral) 41107 Given 06/27/1996 MMR (Measles,Mumps,Rubella) 82059 Given 06/27/1996 DTaP (Daptacel) VFC 23180 Given 05/21/1993 Hep B Vaccine, Ped/Adol Dose 3 Dose VFC (Engerix or Recombivax) 91919 Given 01/15/1993 Hep B Vaccine, Ped/Adol Dose 3 Dose VFC (Engerix or Recombivax) 03068 Given 11/20/1992 Hep B Vaccine, Ped/Adol Dose 3 Dose VFC (Engerix or Recombivax) 05528 Given 11/20/1992 Opv (Poliovirus,Oral) 27742 Given 11/20/1992 MMR (Measles,Mumps,Rubella) 29631 Given 11/20/1992 DPT 14150 Given 11/20/1992 Hib (Hemophilus Influenza B) 71925 Given 01/30/1992 DPT 63456 Given 01/30/1992 Hib (Hemophilus Influenza B) 42829 Given 1991 Opv (Poliovirus,Oral) 13738 Given 1991 DPT 97485 Given 1991 Hib (Hemophilus Influenza B) 69820 Given 1991 Opv (Poliovirus,Oral) 09131 Given 1991 DPT 73038 Given 1991 Hib (Hemophilus Influenza B) 10008 Refused 07/09/2016 Influenza Virus Vaccine, Quadrivalent, 3 Yr > Quad , Preserv Free 66152 Refused 10/29/2012 Influenza Vaccine-Preservative Free 3 Yrs And Above Vital Signs Date Vital Result Comment 01/08/2020 10:57am Weight 175.00 lb Weight 79.380 kg BP Systolic 102 mmHg BP Diastolic 58 mmHg Heart Rate 86 /min Body Temperature 97.5 F Respiratory Rate 16 /min Height 65.5 inches 5'5.50" BMI (Body Mass Index) 28.7 kg/m2 Last Menstrual Period 9827795 O2 % BldC Oximetry 99 % 10/23/2019 9:12am Weight 172.00 lb Weight 78.019 kg BP Systolic 118 mmHg BP Diastolic 70 mmHg Heart Rate 80 /min Body Temperature 97.7 F Respiratory Rate 16 /min O2 % BldC Oximetry 97 % Results Test Acquired Date Facility Test Result H/L Range Note Laboratory test 01/08/2020 [facility] Gardnerella/ SEE RESULT 1 finding [phone] Yeast: BELOW Vaginal Dna Laboratory test 08/30/2019 [facility] Vitamin B12 962 pg/mL High 180-914 2 finding [phone] TSH (Thyroid Stim Horm) 2.39 mcIU/mL Normal 0.34-5.60 3 CBC Auto 08/30/2019 [facility] White Blood 7.4 10^3/ uL Normal 3.5-10.8 Diff [phone] Count Red Blood Count 4.46 10^6/uL Normal 3.70-4.87 Hemoglobin 13.4 g/dL Normal 12.0-16.0 Hematocrit 40 % Normal 35-47 Mean Corpuscular Volume 90 fL Normal 80-97 Mean Corpuscular Hemoglobin 30 pg Normal 27-31 Mean Corpuscular HGB Conc 33 g/dL Normal 31-36 Red Cell Distribution Width 13 % Normal 10-15 Platelet Count 250 10^3/uL Normal 150-450 Mean Platelet Volume 8.3 fL Normal 7.4-10.4 Abs Neutrophils 4.8 10^3/uL Normal 1.5-7.7 Abs Lymphocytes 1.9 10^3/uL Normal 1.0-4.8 Abs Monocytes 0.4 10^3/uL Normal 0-0.8 Abs Eosinophils 0.2 10^3/uL Normal 0-0.6 Abs Basophils 0.1 10^3/uL Normal 0-0.2 Abs Nucleated RBC 0.0 10^3/uL Granulocyte % 65.1 % Lymphocyte % 26.4 % Monocyte % 5.2 % Eosinophil % 2.4 % Basophil % 0.9 % Nucleated Red Blood Cells % 0.3 Comp Metabolic 08/30/2019 [facility] Sodium 138 mmol/ L Normal 135-145 Panel [phone] Potassium 4.1 mmol/L Normal 3.5-5.0 Chloride 104 mmol/L Normal 101-111 Co2 Carbon Dioxide 26 mmol/L Normal 22-32 Anion Gap 8 mmol/L Normal 2-11 Glucose 97 mg/dL Normal 70-100 Blood Urea Nitrogen 9 mg/dL Normal 6-24 Creatinine 0.75 mg/dL Normal 0.51-0.95 BUN/Creatinine Ratio 12.0 Normal 8-20 Calcium 9.8 mg/dL Normal 8.6-10.3 Total Protein 7.2 g/dL Normal 6.4-8.9 Albumin 4.5 g/dL Normal 3.2-5.2 Globulin 2.7 g/dL Normal 2-4 Albumin/Globulin Ratio 1.7 Normal 1-3 Total Bilirubin 0.30 mg/dL Normal 0.2-1.0 Alkaline Phosphatase 52 U/L Normal 34-104 Alt 15 U/L Normal 7-52 Ast 13 U/L Normal 13-39 Egfr Non- 92.0 >60 Egfr 111.3 >60 4 Lipid Profile 08/30/2019 [facility] Triglycerides 146 mg/dL 5 (Trig/Chol/HDL) [phone] Cholesterol 218 mg/dL 6 HDL Cholesterol 50.3 mg/dL 7 LDL Cholesterol 139 mg/dL 8 Laboratory test 08/30/2019 [facility] Cytology SEE RESULT 9 finding [phone] BELOW Laboratory test 08/30/2019 [facility] Culture Genital & SEE RESULT 10 finding [phone] Sensitivity BELOW 1 SEE RESULT BELOW Name: YURI CAMP : [address]: Rebecca Yao MD Acct: [id number] Unit: [id number] AGE: 29 Location: [facility] Re01/08/20 SEX: F Status: REG REF SPEC: [id number] DAVE: 01/08/20-[address]: Rebecca Yao MD REQ: [id number] RECD: 01/08/20-1740 STATUS: COMP _ SOURCE: VAGINAL SPDESC: ORDERED: Radhames,Yeast DNA, Trich DNA COMMENTS: [id number] Would you like to order Trichomonas Vaginalis testing? Yes Procedure Result Reported Site Gardnerella/Yeast: Vaginal DNA Final 01/09/20- 1150 ML Organism 1 POSITIVE GARDNERELLA Organism 2 Negative Ilana The presence of G. vaginalis, although suggestive, is not diagnostic for bacterial vaginosis. Results should be interpreted in conjuction with other clinical and laboratory data available. Women with vaginal discharge should be evaluated for risk factors of cervicitis and pelvic inflammatory disease, toxic shock syndrome (S.aureus), and if present, evaluated for organisms not included in this assay such as N. gonorrhoeae, C. trachomatis, Mobiluncus, Mycoplasma and/or Prevotella. Mixed infections may occur. The performance of this test on patient specimens collected during or immediately after antimicrobial therapy is unknown. The presence or absence of Ilana species, or G. vaginalis cannot be used as a test for therapeutic success or failure. Trichomonas: Vaginal DNA Probe Final 01/09/20- 1150 ML Organism 1 Negative Trichomonas CONTINUED ON NEXT PAGE DEPARTMENT OF PATHOLOGY, [address] [place] [address] Carrington Loza M.D. Director [facility] # [id number] Patient: YURI CAMP [id number] (Continued) Specimen: [id number] Collected: 01/08/20-1246 Received: 01/08/20-1740 (Continued) Procedure Result Reported Site Trichomonas: Vaginal DNA Probe Final (continued) 01/09/20- 1150 The presence or absence of T. vaginalis cannot be used as a test for therapeutic success or failure. * ML - Main Lab . END OF REPORT DEPARTMENT OF PATHOLOGY, [address] [place] [address] Carrington Loza M.D. Director [facility] # [id number] 2 Normal Range 180 to 914 Indeterminate Range 145 to 180 Deficient Range <145 3 [id number] 4 Because ethnic data is not always readily available, this report includes an eGFR for both -Americans and non- Americans. The National Kidney Disease Education Program (NKDEP) does not endorse the use of the MDRD equation for patients that are not between the ages of 18 and 70, are , have extremes of body size, muscle mass, or nutritional status, or are non- or non-. According to the National Kidney Foundation, irrespective of diagnosis, the stage of the disease is based on the level of kidney function: Stage Description GFR(mL/min/1.73 m(2)) 1 Kidney damage with normal or decreased GFR 90 2 Kidney damage with mild decrease in GFR 60-89 3 Moderate decrease in GFR 30-59 4 Severe decrease in GFR 15-29 5 Kidney failure <15 (or dialysis) 5 Desirable: <150 Borderline High: 150-199 High: 200-499 Very High: >500 6 Desirable: <200 Borderline High: 200-239 High: >239 7 Low: <40 Desirable: 40-60 High: >60 8 Desirable: <100 Near Optimal: 100-129 Borderline High: 130-159 High: 160-189 Very High: >189 9 SEE RESULT BELOW Name: OLGA LIDIA CAMP : [address]: Rebecca Yao MD Acct: [id number] Unit: [id number] AGE: 29 Location: [facility] Re08/30/19 SEX: F Status: REG REF SPEC: [id number] DAVE: 08/30/19 [facility] DR: Rebecca Yao MD REQ: [id number] RECD: 08/30/19 STATUS: SOUT _ ORDERED: TP IMAGE ANALYS, HPV/Thin Prep, HPV 16/18 GENE COMMENTS: [id number] FINAL DIAGNOSIS Negative for Intraepithelial lesion or Malignancy Shift in josé miguel suggestive of bacterial vaginosis HPV RESULTS Date Time Test Result Flag (u) Normal Range 08/30/19 1126 HPV KITTY RFLX GE Negative Negative The high-risk HPV types detected by the assay include: 16, 18, 31, 33, 35, 39, 45, 51, 52, 56, 58, 59, 66, and 68. SPECIMEN(S) RECEIVED A. Ectocervical/Endocervical CYTOLOGY ADEQUACY Specimen Adequacy: Satisfactory of evaluation Transformation zone component not identified CONTINUED ON NEXT PAGE DEPARTMENT OF PATHOLOGY, Formerly named [facility] [address] [place] [address] Carrington Loza M.D. Director [facility] # [id number] CYTOLOGY PATIENT INFORMATION Patient Information: HPV: High risk HPV RNA testing regardless of pap results. HPV 16/18 Genotype Reflex Actual Specimen Date: 08/30/19 Spec Date if unknown: 1018 Signed by and Reported on: LAUREANO Self(ASCP) 2600 This Pap test was evaluated with the assistance of the NanomechPrep Test Imaging System. Due to cytologic findings at the knuckler microscope, comprehensive manual rescreening by a Head Of Marketing Analytics may be required. The Pap Smear is a screening test designed to aid in the detection of premalignant and malignant conditions of the uterine cervix. It is not a diagnostic procedure and should not be used as the sole means of detecting cervical cancer. Both false- positive and false- negative reports do occur. Depending on your risk status, a Pap smear should be obtained and evaluated every 1-3 years. END OF REPORT DEPARTMENT OF PATHOLOGY, Formerly named [facility] [address] [place], [place] [address] Carrington Loza M.D. Director [facility] # [id number] 10 SEE RESULT BELOW Name: OLGA LIDIA CAMP : [address]: Rebecca Yao MD Acct: [id number] Unit: [id number] AGE: 29 Location: [facility] Re08/30/19 SEX: F Status: REG REF SPEC: [id number] DAVE: 08/30/19 [facility] DR: Rebecca Yao MD REQ: [id number] RECD: 08/30/19 STATUS: COMP _ SOURCE: VAGINAL SPDESC: ORDERED: Genital Culture COMMENTS: [id number] Procedure Result Reported Site Genital Culture Final 09/01/19- 1323 ML Organism 1 STREP GROUP B Quantity 2+ Organism 2 GARDNERELLA VAGINALIS Quantity 3+ Organism 3 YEAST Quantity 2+ Organism 4 NORMAL JOSÉ MIGUEL Quantity 1+ Routine genital cultures do not include selective agar for Neisseria gonorrhoeae. Molecular testing offers better test sensitivity and therefore is the preferred test methodology for identifying this organism. Susceptibility testing of penicillins and other B-lactams approved by FDA for treatment of Streptococcus pyogenes (Group A Strep) and Streptococcus agalactiae (Group B Strep) is not necessary for clinical purposes and need not be done routinely, since as with vancomycin, resistant strains have not been recognized. (CLSI L929-I42;p.66) Positive isolates will be saved for one week. Please call the Microbiology Laboratory if further susceptibility testing is needed. * ML - Main Lab . END OF REPORT DEPARTMENT OF PATHOLOGY, [address] [place] [address] Carrington Loza M.D. Director [facility] # [id number] Procedures Description No Information Available Medical Devices Description No Information Available Encounters Type Date Location Provider Dx Diagnosis Office Visit 01/08/2020 Main Office Rebecca Baer M67.442 Ganglion, left hand 11:00a Kimi Yao L29.9 Pruritus, unspecified N76.0 Acute vaginitis Office Visit 10/23/2019 9:00a Main Office Silvestre Vo L24.89 Irritant contact MD dermatitis due to other agents Z23 Encounter for immunization Office Visit 08/30/2019 10:15a Main Office Rebecca Baer Z00.00 Encntr for Kimi Yao general adult medical exam w/o abnormal findings E03.9 Hypothyroidism, unspecified E53.8 Deficiency of other specified B group vitamins E78.00 Pure hypercholesterolemia, unspecified N76.0 Acute vaginitis Z23 Encounter for immunization Assessments Date Code Description Provider 01/08/2020 M67.442 Ganglion, left hand Rebecca Yao M.D. 01/08/2020 L29.9 Pruritus, unspecified Rebecca Yao M.D. 01/08/2020 N76.0 Acute vaginitis Rebecca Yao M.D. 10/23/2019 L24.89 Irritant contact dermatitis due to other Silvestre Vo MD agents 10/23/2019 Z23 Encounter for immunization Silvestre Vo MD 08/30/2019 Z00.00 Encounter for general adult medical Rebecca Yao M.D. examination without abno 08/30/2019 E03.9 Hypothyroidism, unspecified Rebecca Yao M.D. 08/30/2019 E53.8 Deficiency of other specified B group Rebecca Yao M.D. vitamins 08/30/2019 E78.00 Pure hypercholesterolemia, unspecified Rebecca Yao M.D. 08/30/2019 N76.0 Acute vaginitis Rebecca Yao M.D. 08/30/2019 Z23 Encounter for immunization Rebecca Yao M.D. Plan of Treatment Future Appointment(s):02/29/2020 11:30 am - Rebecca Yao M.D. at Main Office Functional Status Functional Condition Comment Date Status Glasses Active Mental Status Description No Information Available Referrals Description No Information Available
--- OUTSIDE RECORDS SUMMARY | 2020-03-09 16:43 | XMS REPORT | Continuity of Care Document ---
:1990 External Reference #:[id number] Author Name Rebecca Yao M.D. (transmitted by agent of provider Gretchen Marie) Address [address] [place] [id number] Problems Description No Information Available Social History Type Date Description Comments Sex Unknown Tobacco Use Start: Unknown Patient has never smoked Allergies, Adverse Reactions, Alerts Active Allergies Reaction Severity Comments Date Nitrofurantoin throat swelling, difficulty breathing- 05/22/2012 resolved on own Inactive Allergies NKDA 05/14/2003 Medications Active Medications SIG Qnty Indications Ordering Date Provider Fluconazole 1 tablet by mouth 2tabs N76.0 Rebecca PParvin 02/27/2020 150mg x1 now for yeast Kimi Yao Tablets infection,may repeat in 1 week if needed Clindamycin Phosphate one applicator into 40gm Rebecca Baer 01/09/2020 vaginal canal Blegen M.D. 2% Cream before bed for 7 days Tri-Sprintec Take 1 Tablet By 28tabs Rebecca Baer 10/02/2019 Mouth Once Daily Blegen, M.D. 0.18/0.215/0.25 mg-35 mcg Tablets Vitamin B-12 1 by mouth every Rebecca P. 08/29/2019 1000mcg day- sublingual- Blegen MParvinDParvin Tablets for vitamin b12 deficiency Levothyroxine Sodium Take 1 Tablet By 90tabs Rebecca P. 09/04/2018 Mouth Every Morning Blegen, M.D. 75mcg Tablets On An Empty Stomach Hydrocortisone Apply Twice Per Day 30units Rebecca Baer 06/24/2018 Valerate For Up To 2 Weeks Marco Antoniogen M.D. 0.2% Cream as Needed For Eczema Clindamycin apply qd to bid for 50gm L70.9 Rebecca Baer 07/09/2016 Phos-Benzoyl Perox acne as directed Blegen, M.D. 1-5% Gel Valtrex 2 by mouth twice [...] CPT Code Status Date Vaccine Lot # [id number] Given 10/23/2019 Influenza Virus Vaccine, Quadrivalent, 3 Yr > [id number] Quad, Preserv Free 58363 Given 08/30/2019 Hepatitis A, Adult [id number] 42397 Given 08/29/2018 Influenza Virus Vaccine, Quadrivalent, 3 Yr > [id number] Quad, Preserv Free 43830 Given 08/03/2017 Influenza Virus Vaccine, Quadrivalent, 3 Yr > [id number] Quad, Preserv Free 24963 Given 07/09/2016 Tdap (Adacel) [id number] 12089 Given 07/25/2013 Influenza Vaccine-Preservative Free 3 Yrs And [id number] Above 76716 Given 04/24/2009 Menactra (meningococcal conjugate vaccine) [id number] 63752 Given 07/11/2008 HPV Vaccine, Gardasil [id number] 08820 Given 03/13/2008 HPV Vaccine, Gardasil [id number] 79193 Given 01/11/2008 HPV Vaccine, Gardasil [id number] 42113 Given 01/14/2006 Tdap (Adacel) [id number] 67270 Given 08/24/1998 Influenza Virus Vaccine 94322 Given 06/27/1996 Opv (Poliovirus,Oral) 45770 Given 06/27/1996 MMR (Measles,Mumps,Rubella) 66111 Given 06/27/1996 DTaP (Daptacel) VFC 77149 Given 05/21/1993 Hep B Vaccine, Ped/Adol Dose 3 Dose VFC (Engerix or Recombivax) 77393 Given 01/15/1993 Hep B Vaccine, Ped/Adol Dose 3 Dose VFC (Engerix or Recombivax) 64795 Given 11/20/1992 Hep B Vaccine, Ped/Adol Dose 3 Dose VFC (Engerix or Recombivax) 45342 Given 11/20/1992 Opv (Poliovirus,Oral) 81548 Given 11/20/1992 MMR (Measles,Mumps,Rubella) 22037 Given 11/20/1992 DPT 71423 Given 11/20/1992 Hib (Hemophilus Influenza B) 60844 Given 01/30/1992 DPT 15423 Given 01/30/1992 Hib (Hemophilus Influenza B) 44637 Given 1991 Opv (Poliovirus,Oral) 84103 Given 1991 DPT 90087 Given 1991 Hib (Hemophilus Influenza B) 10121 Given 1991 Opv (Poliovirus,Oral) 80881 Given 1991 DPT 93375 Given 1991 Hib (Hemophilus Influenza B) 87346 Refused 07/09/2016 Influenza Virus Vaccine, Quadrivalent, 3 Yr > Quad , Preserv Free 79156 Refused 10/29/2012 Influenza Vaccine-Preservative Free 3 Yrs And Above Vital Signs Date Vital Result Comment 01/08/2020 10:57am Weight 175.00 lb Weight 79.380 kg BP Systolic 102 mmHg BP Diastolic 58 mmHg Heart Rate 86 /min Body Temperature 97.5 F Respiratory Rate 16 /min Height 65.5 inches 5'5.50" BMI (Body Mass Index) 28.7 kg/m2 Last Menstrual Period 1948448 O2 % BldC Oximetry 99 % 10/23/2019 9:12am Weight 172.00 lb Weight 78.019 kg BP Systolic 118 mmHg BP Diastolic 70 mmHg Heart Rate 80 /min Body Temperature 97.7 F Respiratory Rate 16 /min O2 % BldC Oximetry 97 % Results Test Acquired Date Facility Test Result H/L Range Note Laboratory test 01/08/2020 [facility] Gardnerella/ SEE RESULT 1 finding [phone] Yeast: BELOW Vaginal Dna Laboratory test 08/30/2019 [facility] Vitamin B12 962 pg/mL High 180-914 2 finding [phone] TSH (Thyroid Stim Horm) 2.39 mcIU/mL Normal 0.34-5.60 3 CBC Auto 08/30/2019 [facility] White Blood 7.4 10^3/ uL Normal 3.5-10.8 Diff [phone] Count Red Blood Count 4.46 10^6/uL Normal [...] Blood Cells % 0.3 Comp Metabolic 08/30/2019 [facility] Sodium 138 mmol/ L Normal 135-145 Panel [phone] Potassium 4.1 mmol/L Normal 3.5-5.0 Chloride 104 [...] Egfr 111.3 >60 4 Lipid Profile 08/30/2019 [facility] Triglycerides 146 mg/dL 5 (Trig/Chol/HDL) [phone] Cholesterol 218 mg/dL 6 HDL Cholesterol 50.3 mg/dL 7 LDL Cholesterol 139 mg/dL 8 Laboratory test 08/30/2019 [facility] Cytology SEE RESULT 9 finding [phone] BELOW Laboratory test 08/30/2019 [facility] Culture Genital & SEE RESULT 10 finding [phone] Sensitivity BELOW 1 SEE RESULT BELOW Name: SANDY CAMP : [address]: Rebecca Yao MD Acct: [id number] Unit: [id number] AGE: 29 Location: [facility] Re01/08/20 SEX: F Status: REG REF SPEC: [id number] DAVE: 01/08/20-[address] [facility] [address]: Rebecca Yao MD REQ: [id number] RECD: 01/08/20 STATUS: COMP _ SOURCE: VAGINAL SPDESC: ORDERED: Radhames,Yeast DNA, Trich DNA COMMENTS: [id number] Would you like to order Trichomonas Vaginalis [...] CONTINUED ON NEXT PAGE DEPARTMENT OF PATHOLOGY, [address] [place] [address] Carrington Loza M.D. Director [facility] # [id number] Patient: SANDY CAMP [id number] (Continued) Specimen: [id number] Collected: 01/08/20-1246 Received: 01/08/20-1740 (Continued) Procedure Result Reported Site Trichomonas: Vaginal DNA Probe Final (continued) 01/09/20- 1150 The presence or absence of T. vaginalis cannot be used as a test for therapeutic success or failure. * ML - [facility] . END OF REPORT DEPARTMENT OF PATHOLOGY, [address] [place] [address] Carrington Loza M.D. Director [facility] # [id number] 2 Normal Range 180 to 914 Indeterminate Range 145 to 180 Deficient Range <145 3 [id number] Because ethnic data is not always [...] [address]: Rebecca Yao MD Acct: [id number] Unit: [id number] AGE: 29 Location: [facility] Re08/30/19 SEX: F Status: REG REF SPEC: [id number] DAVE: 08/30/[address]: Rebecca Yao MD REQ: [id number] RECD: 08/30/19 STATUS: SOUT _ ORDERED: TP IMAGE ANALYS, HPV/Thin Prep, HPV 16/18 GENE COMMENTS: [id number] FINAL DIAGNOSIS Negative for Intraepithelial lesion or [...] CONTINUED ON NEXT PAGE DEPARTMENT OF PATHOLOGY, [address] [place] [address] Carrington Loza M.D. Director [facility] # [id number] CYTOLOGY PATIENT INFORMATION Patient Information: HPV: High risk HPV RNA testing regardless of pap results. HPV 16/18 Genotype Reflex Actual Specimen Date: 08/30/19 Spec Date if unknown: 1018 Signed by and Reported on: LAUREANO Self(ASCP) 2462 This Pap test was evaluated with the assistance of the CoreDialp Test Imaging System. Due to cytologic findings at the traffic line painter microscope, comprehensive manual rescreening by a Sports Psychologist may be required. The Pap Smear is [...] years. END OF REPORT DEPARTMENT OF PATHOLOGY, [address] [place] [address] Carrington Loza M.D. Director [facility] # [id number] 10 SEE RESULT BELOW Name: OLGA LIDIA CAMP : [address]: Rebecca Yao MD Acct: [id number] Unit: [id number] AGE: 29 Location: [facility] Re08/30/19 SEX: F Status: REG REF SPEC: [id number] DAVE: 08/30/[address] [facility] [address]: Rebecca Yao MD REQ: [id number] RECD: 08/30/19 STATUS: COMP _ SOURCE: VAGINAL SPDESC: ORDERED: Genital Culture COMMENTS: [id number] Procedure Result Reported Site Genital Culture Final [...] resistant strains have not been recognized. (CLSI J810-Z62;p.66) Positive isolates will be saved for one week. Please call the Microbiology Laboratory if further susceptibility testing is needed. * ML - Main Lab . END OF REPORT DEPARTMENT OF PATHOLOGY, [address] [place] [address] Carrington Loza M.D. Director [facility] # [id number] Procedures Description No Information Available Medical Devices Description No Information Available Encounters Type Date Location Provider Dx Diagnosis Office Visit 02/27/2020 Main Office Rebecca Yao, R50.9 Fever, unspecified 3:30p M.DParvin N76.0 Acute vaginitis L29.9 Pruritus, unspecified Z71.89 Other specified counseling Office Visit 01/08/2020 11:00a Main Office Rebecca Baer M67.442 Ganglion, left Isai YaoParvin hand L29.9 Pruritus, unspecified N76.0 Acute vaginitis Office [...] for immunization Assessments Date Code Description Provider 02/27/2020 R50.9 Fever Rebecca Yao M.D. 02/27/2020 N76.0 Vaginitis Rebecca Yao M.D. 02/27/2020 L29.9 Pruritus, unspecified Rebecca Yao M.D. 02/27/2020 Z71.89 Counseling Rebecca Yao M.D. 01/08/2020 M67.442 Ganglion, left hand Rebecca Yao [...] immunization Rebecca Yao M.D. Plan of Treatment 02/27/2020 - Rebecca Yao M.D.R50.9 FeverComments:DISCUSSED NOT SURE CAUSE OF FEVER, NO OTHER SX REALLY, SOME INCREASED FATIGUE. ACTUALLY FEELS PRETTYWELL. WORTH TESTING FOR COVID GIVEN DURATION OF FEVER AND FATIGUE, GAVE HER CONTACT INFO FOR COVID TESTING CENTER. DISCUSSED ISOLATING. DISCUSSED POSSIBLE UTI, BUT NO REAL SX, POSSIBLE PID BUT NOT REALLY HAVING THOSE SX EITHER AND HAD HAD NEG STI SCREENING. TO KEEP ME POSTED IF WORSENING SX OR FEVER NOT RESOLVING.Follow up:.Recommendations:1. GET TESTED AT [facility] TESTING [facility]ENTER- REGISTER AT [email or web address] OR CALL [phone]. LET ME KNOW IF DIFFICULTY WITH THAT. 2. REMAIN OUT OF CONTACT WITH OTHERS UNTIL FEVER-FREE X 72 HOURS AND COVID TEST NEGATIVE 3. NOTIFY IF URINARY SYMPTOMS, COUGH, WORSENING SYMPTOMS. ALSO NOTIFY IF FEVER AFTER2 MORE DAYS.N76.0 VaginitisNew Medication:Fluconazole 150 mg - 1 tablet by mouth x1 now for yeast infection, may repeat in 1 week if neededFollow up:.Follow up PRNRecommendations:1. IT DOES SOUND LIKE YOU HAVE A YEAST INFECTION BUT YOU HAVE HAD BACTERIAL VAGINAL INFECTIONS RECENTLY. TAKE THE ANTIFUNGAL MEDICINE - FLUCONAZOLE 150 MG 1 DOSE NOW AND THEN REPEAT 1 DOSE IN 1 WEEK 2.IF YOUR SYMPTOMS DO NOT RESOLVE, LET ME KNOW AND I WILL SEND IN A VAGINAL ANTIBIOTIC TO USEL29.9 Pruritus, unspecifiedRecommendations:-- IN CASE YOU HAVE NERVE IRRITATION AT YOUR FEET, YOU CAN TRY COOLING YOUR FEET WITH ICE PACK WRAPPED IN TOWEL AT NIGHT FOR 5-10 MINUTES BEFORE BED TO SEE IF THAT HELPS PREVENT YOUR FEET FROM GETTINGAS WARM AND CAUSING SYMPTOMS. -- OTHERWISE YOU CAN TRY CAPSAICIN HOT PEPPER CREAM ONCE PER DAY NEEDED- CAREFUL APPLYING IT IT CAN CAUSE BURNING FEELING AT YOUR HANDS AND YOU WANT TO BE CAREFUL NOT TO TOUCH YOUR EYES OR OTHER AREAS. APPLY AT FIRST TO SMALL AREA ON ONE FOOT TO MAKE SURE YOU TOLERATE IT- IT WILL BURN FOR MINUTES AND THEN SHOULD HELP CALM DOWN THE NERVE SENSATION AND MAY HELP THE ITCHING. I'M NOT SURE IF THIS WILL WORK BUT IT MAY HELP. USE GLOVES TO APPLY AND WASH HANDS WELL AFTER USE, DO NOT TOUCH YOUR EYES!!Z71.89 CounselingFollow up:.Recommendations:-- YOU ARE DUE FOR YOUR SECOND, AND FINAL , HEPATITIS A VACCINE- YOU CAN GET THIS DONE ANY TIME IN NEXT FEW MONTHS ONCE THE COVID CONCERNS LESSEN Functional Status Functional Condition Comment Date Status Glasses Active Mental Status Description No Information Available Referrals Description No Information Available
[2020-03-09 16:49] VITALS: BP 140/84
--- NOTE | 2020-03-09 17:21 | UC ---
HPI Febrile Illness - HPI Summary HPI Summary: Patient is 29 year old female, who presents today to the urgent care with febrile illness for past 20 days. Temperature ranges from 99-102F . She is not sure of any cycling but she says that whenever she takes her temperature is not normal on a daily basis .She denies any sick contact and lives alone and currently working from home. Reports that she feels very tired. No skin rash reports itching at her heels. This has been looked at by her Primary care doctor-no athlete's foot. Denies any headache, visual disturbance , sore throat, cough, chest pain or shortness of breath . Denies any abdominal pain , nausea or vomiting , diarrhea or constipation. No urinary or vaginal symptoms. Denies any neurological symptoms. No weight loss. Tested negative for covid on 02/28/20 She has hypothyroidism and gets TSH testing every 6 months. Her dose was increased from 50-75 mcg with normal TSH testing 3 months later. Denies any family history of autoimmune disorders. She called her primary care doctor yesterday and was advised to come here today . Is taking Tylenol as needed. - History of Current Complaint Chief Complaint: UCGeneralIllness Time Seen by Provider: 03/09/20 16:46 Hx Obtained From: Patient Hx Last Menstrual Period: 02/27/20 - Allergy/Home Medications Allergies/Adverse Reactions: Allergies Allergy/AdvReac Type Severity Reaction Status Date / Time nitrofurantoin Allergy anaph Verified 04/10/18 14:15 [From Macrobid] Home Medications: Home Medications Levothyroxine TAB* [Synthroid 25 MCG TAB*] 1 tab PO QPM 01/07/17 [History Confirmed 03/09/20] Norethindrone-E.estradiol-Iron [Tri-Legest Fe-28 Day Tablet] 1 tab PO QPM [History Confirmed 03/09/20] Cetirizine* [ZyrTEC 10 MG TAB*] 10 mg PO DAILY 03/11/17 [History Confirmed 03/09] Cranberry (Vaccinium Macrocarp [Cranberry] 500 mg PO QPM 03/11/17 [History Confirmed 03/09/20] PMH/Surg Hx/FS Hx/Imm Hx - Additional Past Medical History Additional PMH: Past Medical History :hypothyroidism Past Surgical History: No Past History of Procedure Family History : Diabetes, osteoarthritis, multiple myeloma in great grandfather on maternal side Social History : no alcohol, non smoker, no drug use. She works as an financial systems administrator at [employer] Previously Healthy: Yes - Surgical History Surgical History: None - Family History Known Family History: Negative: Cardiac Disease - Social History Alcohol Use: None Substance Use Type: None Smoking Status (MU): Never Smoked Tobacco Review of Systems All Other Systems Reviewed And Are Negative: Yes Constitutional: Positive: Fever, Fatigue Skin: Positive: Negative Eyes: Positive: Negative ENT: Positive: Negative Respiratory: Positive: Negative Cardiovascular: Positive: Negative Gastrointestinal: Positive: Negative Genitourinary: Positive: Negative Motor: Positive: Negative Neurovascular: Positive: Negative Musculoskeletal: Positive: Negative. Negative: Arthralgia Neurological/Mental Status: Positive: Negative Psychological: Positive: Negative Is Patient Immunocompromised?: No Physical Exam - Summary Physical Exam Summary: Physical Exam: Const: Appears well. No signs of apparent distress present. Alert and oriented x 3. Musculo: Walks with a normal gait. Head/Face: Atraumatic, normocephalic on inspection. Eyes: EOMI and PERRLA in both eyes. Conjunctivae clear. No discharge noted ENT: Hearing normal, TM normal appearing bilaterally, non bulging , non erythematous . No tenderness to palpation on maxillary and frontal sinus. No pharyngeal erythema or exudates . Uvula is midline. No cervical or submandibular lymphadenopathy noted. Respiratory: Respirations are unlabored. Lungs clear to auscultation bilaterally, no wheezing , rhonchi or rales noted . CVS: Regular rate and Rhythm, S1S2 normal , no murmurs identified. Extremities: Peripheral circulation is grossly normal. Pulses 2+ Abdomen : Soft non tender , nondistended , Bowel sounds present . No guarding , rebound tenderness or rigidity noted. Skin: No lesions or rash located on the upper extremities or on the lower extremities. Bilateral heel: Normal-appearing Neuro: Cranial nerves II to XII intact, motor and sensory intact. DTR Intact bilaterally. Mood is normal. Affect is normal. GCS: 15 Triage Information Reviewed: Yes Vital Signs: Initial Vital Signs Temp 99.2 F 03/09/20 16:48 Pulse 93 03/09/20 16:48 Resp 16 03/09/20 16:48 BP 140/84 03/09/20 16:48 Pulse Ox 97 03/09/20 16:48 Vital Signs Reviewed: Yes Course/Dx - Course Course Of Treatment: During the visit today, we discussed the findings and further plan with lab evaluation. Holding off chest x-ray since lungs are clear. Urinalysis: negative Blood work obtained for CBC, CMP, CRP, TSH. Blood cultures were also obtained. I advised her that somebody will call with positive test results that warrant any further investigation and she should follow up with primary care doctor in 1 -2 days. Patient expressed understanding . - Febrile Illness Differential Diagnoses: Bacteremia, Fever of Unknown Origin, Viremia - Diagnoses Provider Diagnosis: Fever of unknown origin (FUO) Discharge ED - Sign-Out/Discharge Documenting (check all that apply): Patient Departure All imaging exams completed and their final reports reviewed: No Studies - Discharge Plan Condition: Stable Disposition: HOME Patient Education Materials: Fever in Adults (ED) Referrals: Rebecca Yao MD [Primary Care Provider] - As Soon As Possible Additional Instructions: Your urine test is negative for any infection. Your blood work has been drawn today, somebody will call you with any positive test results and if any further investigation is warranted. Tylenol as needed for fever. Follow up with your primary care doctor in 2-3 days. Patients blood pressure slightly high in Urgent care today , plan follow up with PCP for better control Return to Urgent care / ER if symptoms get worse. - Billing Disposition and Condition Condition: STABLE Disposition: Home
[2020-03-10 15:36] LABS: ABS Basophils 0.1 10^3/ul (0-0.2); ABS Eosinophils 0.3 10^3/ul (0-0.6); ABS Lymphocytes 2.5 10^3/ul (1.0-4.8); ABS Monocytes 0.3 10^3/ul (0-0.8); ABS Neutrophils 5.3 10^3/ul (1.5-7.7); Eosinophil % 3.5 %; Hematocrit 39 % (35-47); Hemoglobin 13.6 g/dL (12.0-16.0); Lymphocyte % 29.1 %; Mean Corpuscular HGB Conc 35 g/dL (31-36); Mean Corpuscular Hemoglobin 32 pg (27-31); Mean Corpuscular Volume 91 fL (80-97); Mean Platelet Volume 8.6 fL (7.4-10.4); Nucleated Red Blood Cells % 0.4; Platelet Count 254 10^3/uL (150-450); Red Blood Count 4.29 10^6 /uL (3.70-4.87); Red Cell Distribution Width 13 % (10-15); White Blood Count 8.5 10^3/uL (3.5-10.8)
[2020-03-10 15:37] LABS: Albumin 4.6 g/dL (3.2-5.2); Calcium 9.8 mg/dL (8.6-10.3); Total Bilirubin 0.5 mg/dL (0.2-1.0)
[2020-03-10 15:43] LABS: Albumin/Globulin Ratio 1.8 (1-3); BUN/Creatinine Ratio 16.4 (8-20); CRP High Sensitivity 10.58 mg/L (<2.00); EGFR African American 114.9 (>60); EGFR Non-African American 94.9 (>60); Globulin 2.6 g/dL (2-4); Total Protein 7.2 g/dL (6.4-8.9)
[2020-03-10 15:58] LABS: TSH (Thyroid Stimulating Horm) 1.98 mcIU/mL (0.34-5.60)
--- NOTE | 2020-03-11 08:35 | UC ---
- Progress Note Progress Note: Please call to review her labs. White count is normal, and so are her electrolytes, liver, thyroid and kidney functions. the only abnormal is mild increase in her C reactive protein. This suggests some inflammation, which could be the result of an infection, but it can also be increased with other inflammatory problems such as rheumatological disorders. She is to follow up with Dr. Gilmore. Course/Dx - Diagnoses Provider Diagnoses: Fever of unknown origin (FUO) Discharge ED - Sign-Out/Discharge Documenting (check all that apply): Post-Discharge Follow Up All imaging exams completed and their final reports reviewed: No Studies - Discharge Plan Condition: Stable Disposition: HOME Patient Education Materials: Fever in Adults (ED) Referrals: Rebecca Yao MD [Primary Care Provider] - As Soon As Possible Additional Instructions: Your urine test is negative for any infection. Your blood work has been drawn today, somebody will call you with any positive test results and if any further investigation is warranted. Tylenol as needed for fever. Follow up with your primary care doctor in 2-3 days. Patients blood pressure slightly high in Urgent care today , plan follow up with PCP for better control Return to Urgent care / ER if symptoms get worse. - Billing Disposition and Condition Condition: STABLE Disposition: Home
--- NOTE | 2020-03-12 15:45 | UC ---
- Progress Note Progress Note: + Lyme screen returned this afternoon. Given duration of symptoms with ongoing fever, patient was contacted and advised to begin doxycycline. Side effects reviewed, possible decreased effectiveness of ocp reviewed. Has follow up pending with Dr. Yao. Course/Dx - Diagnoses Provider Diagnoses: Fever of unknown origin (FUO) Discharge ED - Sign-Out/Discharge Documenting (check all that apply): Post-Discharge Follow Up All imaging exams completed and their final reports reviewed: No Studies - Discharge Plan Condition: Stable Disposition: HOME Patient Education Materials: Fever in Adults (ED) Referrals: Rebecca Yao MD [Primary Care Provider] - As Soon As Possible Additional Instructions: Your urine test is negative for any infection. Your blood work has been drawn today, somebody will call you with any positive test results and if any further investigation is warranted. Tylenol as needed for fever. Follow up with your primary care doctor in 2-3 days. Patients blood pressure slightly high in Urgent care today , plan follow up with PCP for better control Return to Urgent care / ER if symptoms get worse. - Billing Disposition and Condition Condition: STABLE Disposition: Home
[2020-03-13 16:46] LABS: Anaplasma phagocytophilum Negative (Negative); B. miyamotoi PCR, B Negative (Negative); Babesia divergens/MO-1 Negative (Negative); Babesia ducani Negative (Negative); Ehrlichia chaffeensis Negative (Negative); Ehrlichia ewingii/canis Negative (Negative); Ehrlichia muris eauclairensis Negative (Negative)
--- NOTE | 2020-03-14 09:05 | UC ---
- Progress Note Progress Note: Pt with neg IgG, IgM - early in course could be undeteced -recommend f/u with pcp and possible retest 7-14 days pt was started on Doxy yesterday Course/Dx - Diagnoses Provider Diagnoses: Fever of unknown origin (FUO) Discharge ED - Sign-Out/Discharge Documenting (check all that apply): Post-Discharge Follow Up All imaging exams completed and their final reports reviewed: No Studies - Discharge Plan Condition: Stable Disposition: HOME Prescriptions: DOXYcycline CAP(*) [DOXYcycline 100MG CAP(*)] 100 mg PO BID #42 cap Patient Education Materials: Fever in Adults (ED) Referrals: Rebecca Yao MD [Primary Care Provider] - As Soon As Possible Additional Instructions: Your urine test is negative for any infection. Your blood work has been drawn today, somebody will call you with any positive test results and if any further investigation is warranted. Tylenol as needed for fever. Follow up with your primary care doctor in 2-3 days. Patients blood pressure slightly high in Urgent care today , plan follow up with PCP for better control Return to Urgent care / ER if symptoms get worse. - Billing Disposition and Condition Condition: STABLE Disposition: Home
== END 2020-03-09 18:00 | disposition home or self-care (01) ==
LOC: UCEAST 16:37
DX: R50.9 Fever, unspecified (principal); R53.83 Other fatigue; E03.9 Hypothyroidism, unspecified; Z79.890 Hormone replacement therapy; Z88.1 Allergy status to other antibiotic agents
CPT/HCPCS: 36415; 80053; 81003; 84443; 85025; 86038; 86141; 86617; 86618; 87040; 87798; 99211; G0463